=== PATIENT | male | born 1960 | race Caucasian/White ===

== ENCOUNTER 2019-03-25 22:28 | Emergency (ER) | payer OTHER ==
[2019-03-25 22:36] VITALS: TEMP 98.1; BMI 24.3
--- NOTE | 2019-03-25 23:03 | PDOC ---
Attending Attestation - Resident Resident Name: MarioSunita - HPI HPI: 03/26/19 00:49 Pt presents to the ED complaining of flank pain that started today. Denies fever, nausea or vomiting or urinary complaints. Denies history of stones. - Physicial Exam PE: 03/26/19 00:55 Agree with resident exam. Patient is well appearing in the ED. Abdomen is soft , non tender, non distended, without guarding or rebound. No CVA tenderness. - Medical Decision Making 03/26/19 00:57 Pt presents to the ED complaining of flank pain without guarding or rebound. Differential includes nephrolithiasis, muscular pain. Will check labs and CT and reassess.
[2019-03-25] MEDS ORDERED: SODIUM CHLORIDE 0.9% 500 ML INFUS.BAG IV ONE (23:07)
[2019-03-25] MEDS ORDERED: KETOROLAC TROMETHAMINE 15 MG/ML VIAL IVPUSH ONE (23:07)
--- NOTE | 2019-03-25 23:26 | PDOC ---
History of Present Illness - General Chief Complaint: Pain, Acute Stated Complaint: PAIN Time Seen by Provider: 03/25/19 23:00 - History of Present Illness Initial Comments: Kieran Felder is an otherwise healthy 58yo man who presents with acute onset of left flank pain starting around noon today. He reports that the pain went away temporarily in the afternoon but returned this evening. The pain is throbbing, 10/10, and radiates/spreads to the left abdomen. He denies hematuria , dysuria, nausea/vomiting, change in bowel habits, fever/chills, cough, or recent illness. Mr Felder takes no medications at home and has not tried anything for the pain today. Past History - Past Medical History Allergies/Adverse Reactions: Allergies Allergy/AdvReac Type Severity Reaction Status Date / Time No Known Allergies Allergy Verified 03/25/19 22:35 Home Medications: Ambulatory Orders Ibuprofen 600 mg PO Q6H PRN #30 tablet 03/26/19 COPD: No - Psycho Social/Smoking Cessation Hx Smoking History: Never smoked Hx Alcohol Use: No Drug/Substance Use Hx: No Review of Systems - Review of Systems Comments:: General: No fevers, no chills, no weight or appetite change, no malaise HEENT: No changes in vision, no changes in hearing, no congestion, no sore throat CV: No chest pain, no palpitations, no LE edema Pulm: No SOB, no cough, no wheezing GI: No nausea or vomiting, no change in bowel habits, no melena : See HPI Musc: No back pain, no joint swelling, no recent injury Skin: No rash, no lesions, no erythema Endo: No excessive thirst, no heat/cold intolerance Heme: No unusual bruising or bleeding, no swollen glands Neuro: No syncope, no numbness/tingling, no focal weakness Vasc: No claudication Psych: No recent change in mood, no SI or HI *Physical Exam - Vital Signs Last Vital Signs Temp Pulse Resp BP Pulse Ox 98.1 F 93 H 19 159/94 97 03/25/19 22:33 03/25/19 22:33 03/25/19 22:33 03/25/19 22:33 03/25/19 22:33 - Physical Exam Comments: General: Appears very uncomfortable, constantly moving, but in no acute distress HEENT: Atraumatic, PERRL, EOMI, MMM, voice normal Cards: RRR, no murmur appreciated Pulm: Comfortable on room air, clear to auscultation bilaterally Abd: Soft, nontender, nondistended : No CVA tenderness Ext: Atraumatic. No LE edema. ROM intact. WWP Skin: Normal color, no rashes or lesions Neuro: A&Ox3, CN grossly intact, normal speech, motor/sensory grossly intact and symmetric Psych: Mood appropriate to situation ED Treatment Course - LABORATORY CBC & Chemistry Diagram: 03/25/19 23:35 03/25/19 23:35 - RADIOLOGY Radiology Studies Ordered: Category Date Time Status SPIRAL- RENAL-STONE CT [CT] Stat CT Scan 03/25/19 23:07 Ordered Medical Decision Making - Medical Decision Making 03/25/19 23:19 Kieran Felder is an otherwise healthy 58yo man who presents with acute onset of left flank pain starting around noon today. He reports that the pain went away temporarily in the afternoon but returned this evening. The pain is throbbing, 10/10, and radiates/spreads to the left abdomen. He denies hematuria , dysuria, nausea/vomiting, change in bowel habits, fever/chills, cough, or recent injury or illness. Mr Felder takes no medications at home and has not tried anything for the pain today. - Suspect kidney stone. No s/s suggesting intra-abdominal infection, no pleuritic pain suggesting pneumonia, no rash, no nausea/vomiting. Pt denies urinary symptoms and does not have fever or CVA TTP to suggest pyelo - CBC, CMP, UA, UCx, spiral CT - Toradol, IVF 03/26/19 00:29 - Patient much more comfortable after toradol - Labs reviewed, no concerninag abnormalities. Slight leukocytosis could be inflammatory response - Pt unable to provide urine sample yet, will send when available 03/26/19 01:16 EDT - CT completed. Large stone in bladder and several stones in L kidney noted. Radiology report pending - Will most likely d/c home with pain control instructions once read is available 03/26/19 01:17 EST - UA with +blood, no sign of infection. - CT with 8mm stone at left UVJ - Pt feels markedly improved. Will d/c home. Discussed home care, return precautions, importance of close follow up with urology. Discussed with Dr Kassy Martin PGY2 Discharge - Discharge Information Problems reviewed: Yes Clinical Impression/Diagnosis: Left nephrolithiasis Condition: Stable Disposition: HOME - Additional Discharge Information Prescriptions: Ibuprofen 600 mg PO Q6H PRN #30 tablet PRN Reason: Pain - Follow up/Referral Referrals: Edvin Lopes MD [Primary Care Provider] - Mihai Ronquillo MD [Staff Physician] - Michael Hernandez MD [Staff Physician] - Soham Moser MD [Staff Physician] - Quentin Oliva MD., MD [Staff Physician] - - Patient Discharge Instructions Patient Printed Discharge Instructions: DI for Kidney Stones Additional Instructions: Discharge Instructions: You were seen in the emergency department for abdominal pain, and you were found to have a kidney stone. You had a CT scan to confirm this, and the stone was found to be 8mm in size and located at the junction of the bladder and ureter. This stone is large enough that it might not be able to pass on its own. Home Care: - You have been prescribed ibuprofen that may be used every 6-8 hours as needed for pain. - You may also use acetaminophen (Tylenol) 650-1000mg every 6-8 hours as needed for continued pain - Make sure you are drinking plenty of fluids to help pass the kidney stone Follow Up: - You should follow up with a urologist within the next week. You have been given the names of several urologists. Please call Wednesday morning to schedule an appointment. You should be seen soon due to the 8mm stone. - Seek immediate medical care if you have worsening of your symptoms, you do not pass the stone within 3-4 days, you stop making urine entirely, you have noticeable blood in your urine, you develop fevers to 101F, or you have any medical emergency. Instrucciones de descarga: Lo vieron en el departamento de emergencias por dolor abdominal, y se descubri que jennifer un clculo renal. Le hicieron franky tomografa computarizada para confirmar esto, y se encontr que el clculo jennifer un tamao de 8 mm y estaba ubicado en la unin de la vejiga y el urter. Esta valencia es lo suficientemente konstantin bert para que no pueda pasar adin. Cuidados en el hogar: - Le merchant recetado ibuprofeno que se puede usar cada 6-8 horas segn sea necesario para el dolor. - Tambin puede usar paracetamol (Tylenol) 650-1000mg cada 6-8 horas segn sea necesario para el dolor continuo - Asegrese de johnathan muchos lquidos para ayudar a pasar el clculo renal Seguimiento: - Debe hacer un seguimiento con un urlogo dentro de la prxima semana. Le merchant dado los nombres de varios urlogos. Por favor llame el lunes por la maana para programar franky joel. Debera verte pronto debido a la valencia de 8 mm. - Busque atencin mdica inmediata si empeora jesus sntomas, no pasa el clculo dentro de los 3-4 nieves, shaye de producir orina por completo, tiene nahum notable en la orina, desarrolla fiebre hasta 101F o tiene algn problema mdico. emergencia. - Post Discharge Activity
[2019-03-25] MEDS ORDERED: KETOROLAC TROMETHAMINE 15 MG/ML VIAL ONE (23:27)
[2019-03-25 23:50] LABS: BASO % 0.1 % (0-2.0); EOS % 0.2 % (0-4.5); HEMATOCRIT 40.7 % (35.4-49); HEMOGLOBIN 14.2 GM/dL (11.7-16.9); LYMPH % 9.7 % (8-40); MCH 33.1 pg (25.7-33.7); MCHC 34.8 g/dl (32.0-35.9); MEAN CELL VOLUME 95.1 fl (80-96); MEAN PLT VOLUME 8.4 fl (7.5-11.1); MONO % 4.5 % (3.8-10.2); NEUT % 85.5 % (42.8-82.8); PLATELET COUNT 234 K/MM3 (134-434); RBC 4.28 M/mm3 (4.00-5.60); RDW 13.1 % (11.9-15.9); WHITE BLOOD COUNT 13.9 K/mm3 (4.0-10.0)
[2019-03-26 00:26] LABS: ALBUMIN 4.3 g/dl (3.4-5.0); BILIRUBIN,TOTAL 0.2 mg/dL (0.2-1); BLOOD UREA NITROGEN 14.6 mg/dL (7-18); CALCIUM 8.9 mg/dL (8.5-10.1); CREATININE 1.2 mg/dL (0.55-1.3); POTASSIUM 4.1 mmol/L (3.5-5.1); TOT PROT 7.8 g/dl (6.4-8.2)
[2019-03-26 01:00] LABS: EPI CELLS 0.7 /HPF (0-5/HPF); HYALINE CASTS 2 /lpf (0-8); URINE APPEARANCE CLEAR; URINE BACTERIA 4.6 /hpf (NEGATIVE); URINE BILIRUBIN NEGATIVE (NEGATIVE); URINE COLOR YELLOW; URINE GLUCOSE (UA) NEGATIVE (NEGATIVE); URINE KETONE NEGATIVE (NEGATIVE); URINE LEUK ESTERASE NEGATIVE (NEGATIVE); URINE NITRITE NEGATIVE (NEGATIVE); URINE PROTEIN NEGATIVE (NEGATIVE); URINE RBC 14 /hpf (0-4); URINE UROBILINOGEN 0.2 mg/dL (0.2-1.0); URINE WBC 2 /hpf (0-5)
[2019-03-26 01:55] VITALS: BP 154/89; PULSE 86
== END 2019-03-26 01:50 | disposition home or self-care (01) ==
LOC: JER 22:28
PROC: 3E0333Z Introduction of Anti-inflammatory into Peripheral Vein, Percutaneous Approach (ICD-10-PCS; principal; 2019-03-25)
DX: N21.0 Calculus in bladder (principal); N20.0 Calculus of kidney
CPT/HCPCS: 36415; 74176-TC; 80053; 81003; 85025; 87086; 99283-25

== ENCOUNTER 2019-06-13 08:30 | Day surgery (SDC) | payer OTHER ==
[2019-06-09 16:32] VITALS: BMI 24.5
[2019-06-13 13:21] VITALS: BP 105/67; PULSE 66; TEMP 97.5
--- NOTE | 2019-06-14 15:38 | PATH ---
Surgical Pathology Report Patient Name: DEISI JUNE [facility]. Rec. #: [id number] /Age/Gender: 1960 (Age: 58) / M Account: [id number] Location: ASU-ENDOSCOPY Taken: 06/13/2019 Received: 06/13/2019 Reported: 06/14/2019 Physicians: Italo Astudillo D.O. Specimen(s) Received A: POLYP SIGMOID B: TRANSVERSE COLON POLYP C: POLYP SPLENIC FLEXURE D: SIGMOID COLON Clinical History Screening colonoscopy Postoperative diagnosis: Colon polyps Final Diagnosis A. SIGMOID COLON POLYP AT 30CM, POLYPECTOMY: TUBULAR ADENOMA. B. TRANSVERSE COLON POLYPS X 3, POLYPECTOMY: TUBULAR ADENOMA, FOUR FRAGMENTS. C. SPLENIC FLEXURE POLYP, POLYPECTOMY: TUBULAR ADENOMA. D. SIGMOID COLON, BIOPSY: COLONIC MUCOSA WITH RECENT HEMORRHAGE AND REACTIVE LYMPHOID AGGREGATE. Electronically Signed Arben Gallagher M.D. Gross Description A. Received in formalin, labeled "polyp sigmoid colon" is a brown, polypoid portion of soft tissue measuring 1.0 cm. in greatest dimension. The specimen is submitted in toto in one cassette. B. Received in formalin, labeled "transverse colon polyps" are 3 solomon, irregular portions of soft tissue ranging from 0.3-0.8 cm. in greatest dimension. The specimens are submitted in toto in one cassette. C. Received in formalin, labeled "polyp splenic flexure" is a solomon, irregular portion of soft tissue measuring 0.3 cm. in greatest dimension. The specimen is submitted in toto in one cassette. D. Received in formalin, labeled "sigmoid colon" is a solomon, irregular portion of soft tissue measuring 0.3 cm. in greatest dimension. The specimen is submitted in toto in one cassette. DL/06/13/2019 saudi/06/13/2019
== END 2019-06-13 12:15 | disposition home or self-care (01) ==
LOC: JASU-ENDO 08:30
PROVIDERS: ATTEND Internal Medicine Gastroenterology
PROC: 0DBL8ZX Excision of Transverse Colon, Via Natural or Artificial Opening Endoscopic, Diagnostic (ICD-10-PCS; 2019-06-13)
PROC: 0DBN8ZX Excision of Sigmoid Colon, Via Natural or Artificial Opening Endoscopic, Diagnostic (ICD-10-PCS; 2019-06-13)
PROC: 0DBM8ZX Excision of Descending Colon, Via Natural or Artificial Opening Endoscopic, Diagnostic (ICD-10-PCS; principal; 2019-06-13 09:30)
DX: Z12.11 Encounter for screening for malignant neoplasm of colon (principal); K64.8 Other hemorrhoids; D12.4 Benign neoplasm of descending colon; D12.5 Benign neoplasm of sigmoid colon; D12.3 Benign neoplasm of transverse colon
CPT/HCPCS: 88305-TC